=== PATIENT | male | born 1945 | race African-American/Black ===

== ENCOUNTER 2017-09-09 18:54 | Emergency (ER) | payer MEDICARE ==
[~2017-09-09] VITALS: Ht 180.3 cm; Wt 118.0 kg
[2017-09-09] MEDS ORDERED: METF500T4 PO (19:07)
[2017-09-09] MEDS ORDERED: ASPI-1159 PO (19:07)
[2017-09-09] MEDS ORDERED: IBUPROFEN 600MG TABLET PO ONE (19:45)
[2017-09-09 22:11] VITALS: BP 118/61
== END 2017-09-09 22:12 | disposition home or self-care (01) ==
LOC: ER 18:54
DX: M54.5 Low back pain (principal); R51 Headache; E11.9 Type 2 diabetes mellitus without complications; Z79.82 Long term (current) use of aspirin; W01.0XXA Fall on same level from slipping, tripping and stumbling without subsequent striking against object, initial encounter
CPT/HCPCS: 70450; 72131; 99284